=== PATIENT | female | born 1985 | race Two or more races ===

== ENCOUNTER 2017-12-13 10:13 | Inpatient (IN) ==
[2017-12-15 07:54] VITALS: BP 131/80
== END 2017-12-15 16:10 | disposition home or self-care (01) | DRG 765 ==
LOC: N.LDOUT 10:13 → N.LD 10:15 → N.OB 17:34
PROVIDERS: ADMIT Obstetrics & Gynecology; ATTEND Obstetrics & Gynecology
PROC: LDCSECT (ICD-10-PCS; 2017-12-13 11:45)